=== PATIENT | female | born 1945 | race Caucasian/White ===

== ENCOUNTER → 2016-10-06 | Outpatient (CLI) | payer MEDICARE, BC ==
[~2016-10-06] MED LIST: ASPIRIN81 M2 PO; ASPIRIN81 MG PO; AVELOX400 M1; B-COMPLEX1 TAB PO; CALCIUM + D 6001 TA1 PO; CELEXA20 MG PO; CIPRO PO; CLARITIN10 M2 PO; CRANBERRY500 M3; FISH OIL 1,001000 MG PO; LANSOPRAZOLE15 MG PO; LEVAQUIN PO; LIPITOR PO; LORTAB 10-5001 EACH PO; MULTI VITAMIN1 EACH PO; PROBIOTIC1 EAC1 PO; VITAMIN B122500 MC1; VITAMIN C1000 M2 PO; VITAMIN D1000 UNI2 PO; VITAMIN E1000 UNI2 PO
--- NOTE | ~2016-10-06 | EKG ---
PATIENT: EDOUARD VERA UNIT #: [id number] Ventricular Rate: 61 BPM Atrial Rate: 61 BPM P-R Interval: 132 ms QRS Duration: 80 ms Q-T Interval: 406 ms QTC Calculation(Bezet): 408 ms P [place]: 83 degrees Calculated R [place]: 43 degrees Calculated T [place]: 72 degrees Diagnosis Line: Sinus rhythm with Fusion complexes Diagnosis Line: Low voltage QRS Diagnosis Line: Septal infarct , age undetermined Diagnosis Line: Abnormal ECG Diagnosis Line: When compared with ECG of 14-JUN-2011 19:02, Diagnosis Line: Fusion complexes are now Present Diagnosis Line: Septal infarct is now Present Diagnosis Line: Confirmed by RACQUEL MCADAMS MD ([id number]) on Diagnosis Line: 10/07/2016 11:24:19 AM INTERPRETING MD: PEMA NORTH
[2016-10-06 15:30] LABS: ALBUMIN SERUM 4.2 g/dL (3.5-5.0); ALKALINE PHOSPHATASE 93 U/L (32-92); ALT (SGPT) 25 U/L (10-40); AST (SGOT) 29 U/L (10-42); BILIRUBIN,TOTAL 0.7 mg/dL (0.2-2.0); BLOOD UREA NITROGEN 19 mg/dL (9-23); BUN/CREATININE RATIO 27.14; CALCIUM SERUM 9.5 mg/dL (8.4-10.2); CARBON DIOXIDE 30 mmol/L (22-31); CHLORIDE 101 mmol/L (100-111); CREATININE SERUM 0.7 mg/dL (0.6-1.4); GLOM FILT RATE Estimated ABOVE60 mL/min (>60); GLUCOSE FASTING 77 mg/dL (70-110); POTASSIUM 4.3 mmol/L (3.5-5.1); SODIUM 138 mmol/L (135-145)
== END | disposition home or self-care (01) ==
LOC: CAMB 13:54
PROVIDERS: Surgery
DX: Z01.818 Encounter for other preprocedural examination (principal); R94.31 Abnormal electrocardiogram [ECG] [EKG]; I25.2 Old myocardial infarction
CPT/HCPCS: 36415; 80053; 93005

== ENCOUNTER → 2016-10-13 | Day surgery (SDC) | payer MEDICARE, BC ==
--- NOTE | ~2016-10-13 | OR ---
Unit #: [id number] #: [id number] Patient: EDOUARD VERA [id number] [address] [place], [place] [address] [id number] MR#: [id number] NAME: EDOUARD VERA ROOM: Date of Procedure: 10/13/2016 Admission Date: 10/13/2016 Surgeon: Luther Luis Jr., M.D. : 1945 Attending Physician: Luther Luis Jr., M.D. Primary Care Physician: Dyllan Rodriguez M.D. OPERATIVE REPORT INDICATIONS FOR PROCEDURE The patient is a 71-year-old white female, who recently has been having some intermittent mid epigastric and right upper quadrant abdominal pain. She has been worked up. CT was negative, but CCK-HIDA scan reproduced her symptoms, and there was zero contraction of the gallbladder. The gallbladder was visualized though. She is brought in this time for laparoscopic cholecystectomy at her request. She understands the procedure including the risks, including that of common duct injury, biliary leak, and bleeding, and intra-abdominal organ injury, and consents. PREOPERATIVE DIAGNOSIS Chronic cholecystitis (acalculous). POSTOPERATIVE DIAGNOSIS Chronic cholecystitis (acalculous). ANESTHESIA General with endotracheal intubation. PROCEDURE PERFORMED Laparoscopic cholecystectomy. DESCRIPTION OF PROCEDURE The patient was positioned in supine position. After being anesthetized and intubated, was prepped and draped in routine fashion for laparoscopic cholecystectomy. A small supraumbilical incision was made approximately a centimeter in length. This was carried down through the fascia, and the fascia and umbilicus were lifted with a towel clip, and a Veress needle was introduced into the abdomen. The abdomen was then inflated with CO2 gas. A 5-mm port was introduced in the abdomen followed by the camera. There was no evidence of any injury related to introduction of the port of the Veress needle. Brief intra-abdominal exploration was carried out. The patient was noted to have some frosting of the surface of the liver, but no evidence of any other abnormalities. There were some adhesions in the right lower quadrant of the abdomen. Two 5-mm ports were placed laterally and an 11-mm port just to the right of the upper midline. The gallbladder was lifted. Dissection was carried out in the triangle of Calot. Cystic duct was isolated, only 1 to 2 mm in diameter, and it was elongated. It was hemoclipped x4, approximately a centimeter from its junction with the common duct and the cystic duct was then divided between the clips. The cystic artery was hemoclipped x3 and divided, and a small posterior branch was also hemoclipped and divided. The gallbladder was Unit #: [id number] #: [id number] Patient: EDOUARD VERA then removed from its bed with the hook cautery using a current of 20, and after it was released, it was removed through the upper midline incision along the grasping clamp and the port. The port was replaced. Subhepatic space checked. There was no evidence of any bleeding from the gallbladder bed. The clips on cystic duct and cystic artery were intact with no evidence of any leak or bleeding. The CO2 was expressed from the abdomen after the fascia in the larger port site was approximated using neoClose technique. After CO2 was expressed from the abdomen, the ports were removed. There was no evidence of any bleeding from the port sites. The port sites were then injected with 0.5% Marcaine with epinephrine locally, and again after hemostasis achieved with Bovie cautery, skin edges were approximated with stainless-steel skin clips and skin stapling device. Sterile dressings were applied externally. Estimated blood loss less than 30 mL. The patient received less than 1000 mL of crystalloid solution during the procedure. Sponges and instruments counts were correct x3. No drains were used. No complications. The patient was taken to the recovery room with stable vital signs in satisfactory condition. Dictated by... Luther Luis Jr., M.D. JMB/alethea TD: 10/14/2016 05:21 JOB #: [id number] OPERATIVE REPORT Page 1 of 1 X Luther Luis MD X PROCEDURE OPERATIVE NOTE
== END | disposition home or self-care (01) ==
LOC: CSUR 06:56
DX: K81.1 Chronic cholecystitis (principal); K21.9 Gastro-esophageal reflux disease without esophagitis; F41.8 Other specified anxiety disorders; E78.5 Hyperlipidemia, unspecified; Z87.01 Personal history of pneumonia (recurrent); Z91.041 Radiographic dye allergy status
CPT/HCPCS: 88304; J0330; J0690; J1650; J2250; J2405; J3010

== ENCOUNTER → 2016-11-24 | Outpatient (CLI) | payer MEDICARE, BC | END | disposition home or self-care (01) | LOC: CECH 13:16 | DX: R94.31 Abnormal electrocardiogram [ECG] [EKG] (principal) | CPT/HCPCS: 93306 ==